=== PATIENT | female | born 1970 | race Two or more races ===

== ENCOUNTER 2023-07-29 19:18 | Emergency (ER) | payer OTHER ==
[~2023-07-29] VITALS: Ht 167.6 cm; Wt 64.4 kg
[2023-07-29] MEDS ORDERED: TOPROL XL50 M1 PO (19:34)
[2023-07-29] MEDS ORDERED: EFFEXOR XR37.5 MG PO (19:35)
[2023-07-29] MEDS ORDERED: SYNTHROID50 MCG PO (19:35)
[2023-07-29] MEDS ORDERED: TRAMADOL HCL E100 MG PO (19:36)
== END 2023-07-30 01:09 | disposition home or self-care (01) ==
LOC: ER 19:18
PROVIDERS: General Practice
DX: N83.209 Unspecified ovarian cyst, unspecified side (principal); R10.9 Unspecified abdominal pain; Z91.040 Latex allergy status
CPT/HCPCS: 36415; 74177; Q9965

== ENCOUNTER 2023-08-21 14:27 | Inpatient (IN) | payer OTHER ==
[~2023-08-21] VITALS: Ht 167.6 cm; Wt 62.6 kg
[~2023-08-21 14:27] MED LIST: EFFEXOR XR37.5 MG PO; SYNTHROID50 MCG PO; TOPROL XL50 M1 PO; TRAMADOL HCL E100 MG PO
[2023-08-21 17:27] LABS: HEMATOCRIT 37.8 % (36.0-45.00); HEMOGLOBIN 13.1 g/dL (12.0-15.00); MEAN CORPUSCULAR HEMOGLOBIN 32.7 pg (27.00-32.0); MEAN CORPUSCULAR HGB CONC 34.8 g/dl (32.0-36.0); PLATELET COUNT 383 K/uL (150-450); RED BLOOD COUNT 4.02 M/uL (4.00-6.00); RED CELL DISTRIBUTION WIDTH 12.8 % (11.5-14.5)
[2023-08-21 17:42] LABS: ERYTHROCYTE SEDIMENTATION RATE 3 mm/hr
[2023-08-21 17:54] LABS: ALBUMIN 4.3 gm/dL (3.4-5.0); BILIRUBIN TOTAL 0.21 mg/dL (0.3-1.2); CALCIUM 9.6 mg/dL (8.5-10.1); CREATININE SERUM 0.65 mg/dL (0.55-1.02); GFR 95.35; GLOBULINA 3.8 G/DL (2.4-3.5); POTASSIUM 4.3 mEq/L (3.5-5.1); TOTAL PROTEIN 8.1 gm/dL (6.4-8.2)
[2023-08-21 19:25] LABS: PH,URINE 7.5 (5.0-8.0); URINE APPEARANCE Clear; URINE BILIRRUBIN Negative (NEGATIVE); URINE BLOOD Negative; URINE COLOR Yellow; URINE GLUCOSE Negative (NEGATIVE); URINE LEUKOCYTE Trace; URINE NITRATE Negative; URINE PROTEIN Negative (NEGATIVE); URINE UROBILINOGEN 0.2 E.U./dl
[2023-08-21 20:00] LABS: URINE BACTERIA 522.8 uL (0.0-1933); URINE EPITHELIAL CELLS 21.1 uL (0.0-38.8); URINE RBC 4.3 uL (0.0-20.8); URINE WBC 25.1 uL (0.0-23.2)
[2023-08-21 22:14] LABS: PARTIAL THROMBOPLASTIN TIME 23.1 SECONDS (22.0-34.0); PROTHROMBIN TIME 10.5 SECONDS (9.0-11.5)
[2023-08-22] MEDS ORDERED: PROGESTERONE200 MG (08:13)
[2023-08-22] MEDS ORDERED: BOTOX200 UNIT (08:13)
[2023-08-22] MEDS ORDERED: HYDROXYCHLOROQ200 MG (08:13)
[2023-08-22] MEDS ORDERED: OZEMPIC1 MG/0.71 (08:13)
[2023-08-22] MEDS ORDERED: CELECOXIB200 MG (08:13)
[2023-08-22] MEDS ORDERED: CLONAZEPAM2 MG (08:14)
[2023-08-22] MEDS ORDERED: NORFLEX100MG (08:14)
[2023-08-22] MEDS ORDERED: PRO-FAST SR37.5 MG (08:14)
[2023-08-23 08:12] LABS: HEMATOCRIT 34.6 % (36.0-45.00); HEMOGLOBIN 11.8 g/dL (12.0-15.00); MEAN CELL VOLUME 94.6 fL (80.00-100.00); MEAN CORPUSCULAR HEMOGLOBIN 32.3 pg (27.00-32.0); MEAN CORPUSCULAR HGB CONC 34.2 g/dl (32.0-36.0); PLATELET COUNT 272 K/uL (150-450); RED BLOOD COUNT 3.66 M/uL (4.00-6.00); RED CELL DISTRIBUTION WIDTH 12.6 % (11.5-14.5)
[2023-08-23 09:08] LABS: ALBUMIN 3.2 gm/dL (3.4-5.0); CALCIUM 8.6 mg/dL (8.5-10.1); CREATININE SERUM 0.61 mg/dL (0.55-1.02); GFR 102.6; MAGNESIUM 1.9 mg/dL (1.8-2.4); PHOSPHOROUS 3.8 mg/dL (2.5-4.9); POTASSIUM 4.07 mEq/L (3.5-5.1)
[2023-08-23] MEDS ORDERED: HYOSCYAMINE0.125 M1 SL (13:32)
== END 2023-08-23 14:44 | disposition home or self-care (01) | DRG 330 ==
LOC: ER 14:27 → SURH 21:47
PROVIDERS: Emergency Medicine; Surgery; ADMIT Internal Medicine; ATTEND Internal Medicine
PROC: 0DTJ0ZZ Resection of Appendix, Open Approach (ICD-10-PCS; 2023-08-22)
PROC: 0WJG4ZZ Inspection of Peritoneal Cavity, Percutaneous Endoscopic Approach (ICD-10-PCS; 2023-08-22)
PROC: 0DBH0ZZ Excision of Cecum, Open Approach (ICD-10-PCS; principal; 2023-08-22 14:00)
DX: C18.1 Malignant neoplasm of appendix (principal); K35.890 Other acute appendicitis without perforation or gangrene; I10 Essential (primary) hypertension; Z53.31 Laparoscopic surgical procedure converted to open procedure